=== PATIENT | female | born 1940 | race Caucasian/White ===

== ENCOUNTER 2022-08-01 15:35 | Outpatient (CLI) | payer MEDICARE, SELFPAY ==
[2022-08-01 17:30] LABS: Chloride* 105 mmol/L (96-114); Potassium* 4.5 mmol/L (3.6-5.1); Sodium* 139 mmol/L (135-149)
[2022-08-01 17:33] LABS: Blood Urea Nitrogen* 12 mg/dL (7-30); Calcium* 9.6 mg/dL (8.4-10.6); Carbon Dioxide* 27 mmol/L (20-32); Creatinine* 0.7 mg/dL (0.5-1.5); Estimated Glomerular Filt Rate 86 ml/min; Glucose* 92 mg/dL (60-115)
== END 2022-08-01 15:36 | disposition home or self-care (01) ==
PROVIDERS: PCP Nurse Practitioner Family; Visit Provider Family Medicine
DX: E03.9 Hypothyroidism, unspecified (principal); Z13.1 Encounter for screening for diabetes mellitus
CPT/HCPCS: 80048; 84443

== ENCOUNTER 2023-05-08 10:23 | Outpatient (CLI) | payer MEDICARE, SELFPAY | END 2023-05-08 10:24 | disposition home or self-care (01) | PROVIDERS: PCP Family Medicine; Visit Provider Family Medicine | DX: E03.9 Hypothyroidism, unspecified (principal); Z13.1 Encounter for screening for diabetes mellitus; Z13.21 Encounter for screening for nutritional disorder | CPT/HCPCS: 80048; 82607; 84443 ==

== ENCOUNTER 2024-03-21 09:59 | Outpatient (CLI) | payer MEDICARE, SELFPAY ==
--- OUTSIDE RECORDS SUMMARY | 2024-03-21 10:02 | XMS_ITS | Clinical Summary ---
Author Organization [facility] Address [address] [facility] [place] [address] Care Team Providers Care Tanker Truck Driver Name Role Phone VesnaJuly cifuentes Ann Primary Care Provider Mayank Haines MD Unavailable [phone] Allergies Active Allergy Reactions Criticality Noted Date Comments Amitriptyline Other (See Comments) 01/31/2011 zoned out zoned out Aspirin Other (See Comments) High 01/31/2011 mental, zones out Tryptophan Other (See Comments) High 07/01/2011 And tryptophan family Reaction unknown. ??Tryptophan is a precursor to serotonin. ?? Medications Medication Sig Dispensed Refills Start Date End Date Status Ascorbic Acid (VITAMIN C PO) Active calcium carbonate (OS-RAND 500 MG [place]. CA) 500 MG tablet Take 500 mg by mouth 2 times daily Active Celecoxib (CELEBREX PO) Active cholecalciferol (VITAMIN D/ D--LORETO) 400 UNIT/ML LIQD Take 400 Units by mouth daily Active Jefferson-3 Fatty Acids (OMEGA-3 FISH OIL PO) Act bri GABAPENTIN PO Active garlic 150 MG TABS Take 150 mg by mouth daily Active HYDROcodone-acetamino phen (NORCO) 10-325 MG per tablet Take 1 tablet by mouth every 6 hours as needed Active Levothyroxine Sodium (SYNTHROID PO) Active magnesium citrate solution Take 296 mLs by mouth once Active NIACIN-50 PO Active pramoxine-zinc oxide 1-5 % CREA Place rectally daily as needed Active VITAMIN E COMPLEX PO Acti ve Multiple Vitamins-Minerals (MULTIVITAMIN & MINERAL PO) Active Ranitidine HCl (ZANTAC PO) Active vitamin B complex with vitamin C (VITAMIN B COMPLEX) TABS Take 1 tablet by mouth daily Active Nutritional Supplements (LOGAN COMPLEX PO) Active Red Yeast Rice Extract (RED YEAST RICE PO) Take 1 tablet by mouth daily Active UNABLE TO FIND 2 tablets 2 times daily MEDICATION NAME: [id number] Active UNABLE TO FIND MEDICATION NAME: Sucrafafte Active SUCRALFATE PO Active erythromycin (ROMYCIN) ophthalmic ointmentIndications:P ostoperative eye state Apply small amount to incision sites three times daily and into the eyelid at bedtime for 7 days. 3.5 g 01/07/2018 Active Active Problems No known active problems Family History Medical History Relation Comments Cancer Brother Cancer Daughter Thyroid Disease Daughter Cancer Father Glaucoma Father Cancer Mother Cerebrovascular Disease Mother Hypertension Mother Thyroid Disease Mother Cancer Other Cancer Son Macular Degeneration No family hx of Relation Status Comments Brother Daughter Father Mother Other Son Social History Tobacco Use Types Packs/Day Years Used Date Smoking Tobacco: Never Smokeless Tobacco: Never Alcohol Use Standard Drinks/Week Comments No 0 (1 standard drink = 0.6 oz pur e alcohol) Sex and Gender Information Value Date Recorded Sex Assigned at Not on file Gender Identity Not on file Sexual Orientation Not on file Last Filed Vital Signs Vital Sign Reading Time Taken Comments Blood Pressure 115/77 01/07/2018 11:59 AM CDT Pulse 55 01/07/2018 11:59 AM CDT Temperature 36.1 ??C (96.9 ??F) 01/07/2018 11:59 AM C DT Respiratory Rate 15 01/07/2018 11:59 AM CDT Oxygen Saturation 94% 01/07/2018 11:59 AM CDT Inhaled Oxygen Concentration - - Weight 77.6 kg (171 lb) 12/01/2017 1:56 PM CDT Height 165.1 cm (5' 5) 12/01/2017 1:56 PM CDT Body Mass Index 28.46 12/01/2017 1:56 PM CDT Plan of Treatment Not on file Care Teams Tanker Truck Driver Relationship Specialty Start Date End Date July Bhardwaj PCP - General Family Practice 12/01/17 Mayank Patterson MD [address] [address] Ophthalmology 04/23/18
--- OUTSIDE RECORDS SUMMARY | 2024-03-21 10:02 | XMS_ITS | Continuity of Care Document ---
Author Organization [facility] Address [address] [facility] [address] [place] [address] Phone Care Team Providers Care Neck Band Operator Name Role Phone Candace Mcmillan MD Unavailable Unavailable Allergies, Adverse Reactions, Alerts Substance Reaction Status Criticality [id number] Antimigraine Agents Active No Information aspirin Active No Information Medications Medication Instructions Dosage Effective Dates (start - stop) Status Comments Celebrex 200 mg capsule take 1 capsule by oral route 2 times every day as needed 200 MG - Active gabapentin 300 mg capsule take 2 capsule by oral route every morning then 1 capsule at noon and 2 capsules in the evening 600 MG - Active methocarbamol 750 mg tablet take 2 Tablet by oral route 4 times every day 1500 MG - Active hydrocodone 7.5 mg-acetaminophen 750 mg tablet take 1 tablet by oral route every 4 - 6 hours as needed for pain not to exceed 5 tablets in 24hrs - Active levothyroxine 25 mcg tablet take 1 tablet by oral route every morning 25 MCG - Active niacin 500 mg tablet take 2 Tablet by oral route every evening 1000 MG - Active tramadol 50 mg tablet take 1 - 2 tablet by oral route every day as needed 50 MG - Active ascorbic acid 500 mg tablet take 1 Tablet by Oral route 2 times every day 1 Tablet - Active Calcium 600 600 mg (1,500 mg) tablet take 1 Tablet by Oral route 2 times every day 1 Tablet - Active VITAMIN D3 (unknown strength) take 1 Tablet by Oral route 2 times every day Not Available - Active Fish Oil 1,000 mg capsule take 1 Capsule by Oral route every day - Active garlic 500 mg tablet take 1 tablet by oral route 2 times every day - Active vitamin E 400 unit capsule take 1 Capsule by Oral route 2 times every day 1 Capsule - Active magnesium 250 mg tablet take 1 Tablet by Oral route 2 times every day 1 Tablet - Active potassium 99 mg tablet take 1 tablet by oral route 2 times every day - Active VITAMIN B-12 (unknown strength) take 2 tablet by oral route every day Not Available - Active multivitamin tablet take 1 Tablet by Oral route 2 times every day 1 Tablet - Active ranitidine 150 mg tablet take 1 tablet by oral route every day at bedtime - Active Probiotic & Acidophilus 300 million cell-250 mg capsule take 2 capsule by oral route every day 2 capsule - Active Procedures Procedure Date Office/Outpatient Visit, Est Routine Venipuncture Complete Cbc WAuto Diff Wbc Rbc Sed Rate, Nonautomated CReactive Protein Results Test Name Date and Time Measure Units Reference Range Abnormal Flag Status Commen ts Panel Description: CRP Final CRP 11:50:00 0.04 MG/DL 0.00-0.60 Final Panel Description: CBC Final WBC 11:52:00 3.6 K/uL 3.5-10.8 Final Lymphocyte% 11:52:00 35.9 % 15.1-43.0 Final Mid% 11:52:00 7.0 % 1.0-18.0 Final Gran% 11:52:00 57.1 % 45.0-76.0 Final Lymphocyte # 11:52:00 1.2 K/uL 0.9-5.2 Final Mid # 11:52:00 0.2 K/uL 0.1-2.0 Final Gran # 11:52:00 2.2 K/uL 1.4-9.1 Final RBC 11:52:00 4.27 M/uL 3.80-5.20 Final Hemoglobin 11:52:00 12.9 g/dL 11.5-16.0 Final Hematocrit 11:52:00 38.8 % 36.0-49.0 Final MCV 11:52:00 91 fL 81-100 Final MCH 11:52:00 30 pg 27-35 Final MCHC 11:52:00 33.3 g/dL 31.0-37.5 Final RDW 11:52:00 14.2 % 11.5-21.5 Final MPV 11:52:00 7.0 fL 7.0-10.4 Final Platelet Count 11:52:00 222 K/uL 130-400 Final Panel Description: ESR Final ESR 11:54:00 8 mm/hr 0-25 Final Advance Directives Directive Yes / No Effective Date File Name Resuscitation Not Answered N/A N/A Life Support Not Answered N/A N/A Intubation Not Answered N/A N/A Antibiotics Not Answered N/A N/A IV Fluid Support Not Answered N/A N/A Tube Feed Not Answered N/A N/A Other Directive N/A N/A WARNING:The information contained in this section is historical and is provided for information only and does not constitute a legal document or any assurance that the information is still accurate. Please verify the information with the doyle of the legal document before using it for clinical purposes. Encounters Encounter Description Practice Location Reason(s) For Visit Diagnoses Date Provider Providers Copied on Encounter Office/Outpa tient Visit, Est [facility], [address], [place], [address], [place] tel:[phone] Formerly [facility], [facility] Joint Pain (chief complaint) LumbagoFatig ue / Malaise 2-201 4 Hipolito Maria. [facility] [address], [place], [address], [place]. tel:[phone] Referring Provider: Candace Nash, [facility] [address], [place], [address]. tel:[phone] [facility], [address], [place], [address], [place] tel:[phone] [facility] , No Information Sep-2 5-201 4 Hipolito Maria. [facility] [address] [facility] [address], [place], [address], [place]. tel:[phone] Family History Family Member Type Diagnosis Age At Onset Problem (finding) Family history of hyper tension Problem (finding) Family history of osteo arthritis Problem (finding) cancer Problem (finding) heart disease Problem (finding) Diabetes mellitus Problem (finding) thyroid disease Payers Payer name Insurance type Covered constitution party ID Authoriza tion(s) [employer] CI [id number] Social History Type Description Quantity Date Captured Comments Alcohol Use Details wine 1 glass rarely Caffeine Use Details coffee and soda 1 cup per day Tobacco Use Status No Information Smoking Status Never smoker with 3 children Non-Smoking Tobacco Use Details : No Details Available : No Details Available Sex Female Vital Signs Date / Time: Height Weight BMI Pulse Rate Blood Pressure Temperature Respiratory Rate Body Surface Area Head Circumference Head Circ. Percentile Wt./Jose. Percentile BMI percentile Pulse Ox Inhaled Ox 10:09 AM 66.00 in 180.00 lbs 29.0 5 kg/m eter (2) 158/84 mm[Hg] 97.10 F Chief Complaint And Reason For Visit From encounter dated 04/13/2014 11:00'. Joint Pain (chief complaint) Reason For Referral Reason For Referral No Information History Of Present Illness Encounter Date Complaint History Of Prese nt Illness No Information Functional Status Date Functional Assessmen t No Information Instructions Date Instruction Additional Infor mation No Information Assessments Type Assessment Date No Information Patient Care Teams Name Effective Dates (start - stop) Status Members No Information
--- OUTSIDE RECORDS SUMMARY | 2024-03-21 10:02 | XMS_ITS | Continuity of Care Document ---
Author Organization [facility] Address [address] [place] [address] Phone Care Team Providers Care Cloud Automation Tester Name Role Phone Juanita MORAN, Amidanilo Unavailable Unavailable Allergies, Adverse Reactions, Alerts Substance Reaction Status Criticality CLINDAMYCIN HCL Hives and rash Active No Informa tion amitriptyline Confusion Active No Information aspirin Confusion Active No Information Medications Medication Instructions Dosage Effective Dates (start - stop) Status Comments ACETAMINOPHEN (unknown strength) Not Available - Active CALCIUM (unknown strength) Not Available - Active HYDROcodone-acetaminoph en (unknown strength) Not Available - Active PANTOPRAZOLE SODIUM (unknown strength) Not Available - Active TAMSULOSIN HCL (unknown strength) Not Available - Active MAGNESIUM (unknown strength) Not Available - Active NIACIN (unknown strength) Not Available - Active GABAPENTIN (unknown strength) Not Available - Active MULTIVITAMINS (unknown strength) Not Available - Active CELEBREX (unknown strength) Not Available - Active ROBAXIN (unknown strength) Not Available - Active TIROSINT (unknown strength) Not Available - Active POTASSIUM (unknown strength) Not Available - Active FISH OIL (unknown strength) Not Available - Active Procedures Procedure Date Postop Followup Visit X-Ray Exam Lower Spine 2-3 Views 2018 Postop Followup Visit X-Ray Exam Lower Spine 2-3 Views 2018 Pa Arthdsis Post/Posterolatrl/Postinterb smita Lumbar Pa Arthdsis Post/Posterlatrl/Postintrbdy adl Spc/Seg Pa Assist Spine Fusion, Each Add'Lverteb ra Remove Lumbar Spine Lamina, 1 Seg Pa Assist Insert Spine Seg Fix, Post, 3- 6 Seg PA Assist Insert interbody cage w/fusion Arthdsis Post/Posterolatrl/Postinterbody Lumbar Arthdsis Post/Posterlatrl/Postintrbdyadl Spc/Seg Spine Fusion, Each Add'Lvertebra 2017 Remove Lumbar Spine Lamina, 1 Seg Insert Spine Seg Fix, Post, 3-6 Seg Insert interbody cage w/fusion 18 Autograft, Spine Surgery, Local 018 Allograft, Spine Surg, Morselized Office/Outpatient Visit,New, Mod 2017 Office/Outpatient Visit,Est, Mod 2013 Office/Outpatient Visit,Est, Mod 2011 Office/outpatient visit,est, mod 2010 Office/outpatient visit,new, mod 2010 X-ray exam lower spine 2-3 views 2010 Advance Directives Directive Yes / No Effective Date File Name No Information Encounters Encounter Description Practice Location Reason(s) For Visit Diagnoses Date Provider Providers Copied on Encounter [facility], [address] [facility], [place], [place], [id number], [place] tel:[phone] [facility] No Information 1 Juanita Farah [facility], [address] [place] [address] [address], [place], [place], [id number], [place]. tel:[phone] [facility], [address] [place] [address], [id number], [place] tel:[phone] [facility] Encounter for other specified surgical aftercareEnco unter for other specified surgical aftercare 9 Claudia Ayala. [address] [place] [address] [address], [place], [place], [id number], [place]. tel:[phone] Referring Provider: Keon Thacker, [facility] [address] [place] [address], [place], [address]. tel:[phone] [facility], [address] [place] [address], [id number], tel:[phone] [facility] Encounter for other specified surgical aftercare Mehbod Amir. [facility], [address] [place] [address], [id number], . tel:[phone] Referring Provider: Keon Thacker [address], [address]. tel:[phone] [facility], [address] [place] [address], [id number], [place] tel:[phone] [facility] No Information Doreenmegan Ayala. [address] [place] [address], [id number], . tel:[phone] Referring Provider: Keon Thacker [address], [address]. tel:[phone] [facility], [address] [place] [address], [id number], [place] tel:[phone] [facility] No Information Mehbod Amir. [facility], [address] [place] [address], [id number], . tel:[phone] Referring Provider: Keon Thacker [address], [address]. tel:[phone] Office/Outpa tient Visit,New, [facility], [address] [place] [address], [id number], tel:[phone] [facility] [place] Spinal stenosis, lumbar region with neurogenic claudication Mehbod Amir. [facility], [address] [place] [address], [id number], . tel:[phone] Referring Provider: Keon Thacker [address], [address]. tel:[phone] Office/Outpa tient Visit,Est, Mod Z [facility], [address], [place], [address], [place] tel:[phone] [facility] [place] Back Pain (chief complaint) No Information 0-201 4 Mehbod Amir. [facility], [address], [place], [place], [id number], [place]. tel:[phone] Referring Provider: Ruthie Grant, [facility] [address], [place], [address]. tel:[phone] Office/Outpa tient Visit,Est, Mod Z [facility], [address], [place], [facility], [place] tel:[phone] [facility] No Information 0-201 2 Mehbod Amir. [facility], [address], [place], [place], [id number], [place]. tel:[phone] Referring Provider: Ruthie Grant, [facility] [address], [place], [address]. tel:[phone] Office/outpa tient visit,est, mod Z [facility], [address], [place], [facility], [place] tel:[phone] [facility] [place] No Information 3-201 1 Mehbod Amir. [facility], [address], [place], [place], [id number], [place]. tel:[phone] Referring Provider: Ruthie Grant, [facility] [address], [place], [address]. tel:[phone] Office/outpa tient visit,new, mod Z [facility], [address], [place], [place], [facility], [place] tel:[phone] [facility] [place] back pain (chief complaint) leg pain (chief complaint) No Information 1 Juanita Hendricks. [facility], [address], [place], [place], [id number], . tel:[phone] Referring Provider: Ruthie Grant, [facility] [address], [place], [address]. tel:[phone] Z [facility], [address], [place], [address], [place] tel:[phone] [facility] - [facility] MigraineSLEEP DISTURBANCE NOSHypothyroi dismArthropat hy/ArthritisO steoporosisSC OLIOSIS NEC 1 Pankaj Adkins. [facility], [address] [place] [address] [address], [place], [place], [id number], . tel:[phone] Family History Family Member Type Diagnosis Age At Onset Father Problem (finding) Diabetes mellitus Mother Problem (finding) Heart disease Father Problem (finding) Arthritis Father Problem (finding) Heart disease Problem (finding) Family history of Cance r Mother Problem (finding) osteoporosis Problem (finding) Family history of scoliosis deformity of spine Mother Problem (finding) hypertension Mother Problem (finding) Arthritis Mother Problem (finding) Low back problems Payers Payer name Insurance type Covered constitution party ID Ted tavera(s) [facility] [id number] Medicare [facility] [id number] Social History Type Description Quantity Date Captured Comments Sex Female Smoking Status No Information Chief Complaint And Reason For Visit No Information Reason For Referral Reason For Referral No Information History Of Present Illness Encounter Date Complaint History Of Prese nt Illness Back Pain Functional Status Date Functional Assessmen t No Information Instructions Date Instruction Additional Infor mation No Information Assessments Type Assessment Date No Information Patient Care Teams Name Effective Dates (start - stop) Status Members No Information
--- OUTSIDE RECORDS SUMMARY | 2024-03-21 10:02 | XMS_ITS | Clinical Summary ---
Author Organization [employer] [facility] Address [place], [place] [address] Care Team Providers Care Occup Ther Name Role Phone July Bhardwaj MD Primary Care Provider Christopher emery Allergies Active Allergy Reactions Criticality Noted Date Comments Amitriptyline Intolerance-Can't Take 01/31/2011 zoned out Aspirin Other - Describe In Comment Field 01/31/2011 mental, zones out Tryptophan Other - Describe In Comment Field 06/22/2018 Reaction unknown. Tryptophan is a precursor to serotonin. Medications Medication Sig Dispensed Refills Start Date End Date Status calcium 600 mg capsule Take 600 mg by mouth every morning. 0 01/31/2011 Active multivitamin (MVI) tablet Take 1 tablet by mouth at bedtime. 0 01/31/2011 Active celecoxib (CELEBREX) 200 mg capsule Take 200 mg by mouth 2 times daily with meals. Active Cholecalciferol, Vitamin D3, 5,000 unit Tab Take 5,000 Units by mouth at bedtime. Active omega-3 fatty acids-vitamin E (FISH OIL) 1,000 mg Cap Take 1 capsule by mouth once daily. Active ASCORBATE CALCIUM (VITAMIN C ORAL) Take 500 mg by mouth at bedtime. Active PROCHLORPERAZINE EDISYLATE (COMPAZINE ORAL) Take by mouth. Per pt states she takes it after surgery; patient states she throws up after anesthetic. Active gabapentin (NEURONTIN) 300 mg capsule Take 300-900 mg by mouth 3 times daily. Take 2 tablet in the am and 1 tablet at noon and 3 tablets at bedtime Active magnesium oxide 250 mg tablet Take 250 mg by mouth at bedtime. Active levothyroxine (SYNTHROID) 50 mcg tablet Take 50 mcg by mouth before breakfast. 07/28/2016 Active pantoprazole (PROTONIX) 40 mg delayed-release tablet Take 40 mg by mouth once daily. 07/28/2016 Active VOLTAREN gel Apply 1 Applicatorful topically to affected area(s) 2 times daily if needed. 07/10/2017 Active diphenhydrAMINE-ac etaminophen 25-500 mg (ACETAMINOPHEN PM) 25-500 mg tablet Take 2 tablets by mouth at bedtime if needed (as needed for sleep ). Max acetaminophen dose: 4000mg in 24 hrs. Active sucralfate (CARAFATE) 1 gram tablet Take 1 tablet by mouth 2 times daily before meals. Active pyridoxine HCl, vitamin B6, (VITAMIN B-6 ORAL) Take by mouth once daily. Active oxyCODONE (ROXICODONE) 5 mg immediate release tabletIndications: Acute pain Take 1-2 tablets by mouth every 4 hours if needed for Pain (For moderate pain) Earliest Fill Date: 06/28/18 40 tablet 06/28/2018 Active sennosides-docusat e, 8.6-50 mg, (SENOKOT S) 8.6-50 mg tabletIndications: Acute pain Take 1-4 tablets by mouth 2 times daily. 100 tablet 06/28/2018 Active prochlorperazine (COMPAZINE) 10 mg tablet Take 10 mg by mouth each time if needed for Nausea/Vomiting or Other (Specify) (pt states she takes after surgery as she throws up after anesthetic ). 07/16/2018 Active carboxymethylcellu lose-glycern (OPTIVE) 0.5-0.9 % ophthalmic solution Place 1 Drop into both eyes each time if needed (dry eyes). 07/16/2018 Active Lactobacillus Acidophilus cap Take 1 capsule by mouth once daily if needed (digestion aid). Active methocarbamol (ROBAXIN) 750 mg tablet Take 750 mg by mouth at bedtime if needed (back spasms). 07/16/2018 Active acetaminophen (TYLENOL) 325 mg tablet Take 650 mg by mouth every 6 hours if needed (pain). Max acetaminophen dose: 4000 mg in 24 hours 07/16/2018 Active diclofenac 1 % topical (VOLTAREN) gel Apply 1 Applicator topically to affected area(s) 2 times daily if needed (joint pain ). 07/16/2018 Active tamsulosin (FLOMAX) 0.4 mg capsuleIndications :Urinary hesitancy TAKE 1 CAPSULE BY MOUTH EVERY DAY 90 capsule 3 01/02/2019 Active Active Problems Problem Noted Date Diagnosed Date Spinal stenosis of lumbar re gion with neurogenic claudication 06/25/2018 Hypothyroidism 06/25/2018 Mixed incontinence 06/16/2016 Left carpal tunnel syndrome 12/07/2012 Right carpal tunnel syndrome 10/26/2012 Left shoulder Reverse TSA 01/28/2012 09/02/2012 Left shoulder Reverse TSA 01/28/2012 02/10/2012 ACP (advance care planning) 01/29/2012 Overview (01/29/2012): Patient has identified Health Care Agent(s): Yes Add Health Care Agents: Yes Health Care Agent(s): Primary Health Care Agent: Laura Rodrigues Relationship:granddtr. Phone: H)[phone] Secondary Health Care Agent:Cecelia Steele Relationship:dtr Phone: H)[phone] C)[phone] Conservator: Relationship: Phone: Guardian: Relationship: Phone: Patient has Advance Care Plan Documents (Health Care Directive, POLST): Yes Advance Care Plan Documents: Health Care Directive Patient has identified Specific Treatment Preferences: Yes Specific Treatment Preferences: Per Chart Full code , please see HCD for specific treatment preferences s/p right shoulder reverse total shoulder DOS 10/02/2011 Osteoarthritis of glenohumeral joint, left 10/01 Osteoarthritis of glenohumeral joint, right 08/0 10/2010 Complete rupture of rotator cuff 01/31/2011 Resolved Problems Problem Noted Date Diagnosed Date Resolved Date Carpal tunnel syndrome, left 12/02/2012 12/07/2012 Immunizations Name Administration Dates Next Due Pneumococcal Poly,23-Valent (Pneumovax) 12/13/19 05 Family History Medical History Relation Name Comments Cancer-pancreatic Brother Cancer-breast Daughter Cancer Father stomach cancer Heart Disease Father Heart Disease Maternal Uncle 1 Heart Disease Maternal Uncle 2 Cancer Mother uterine cancer Heart Disease Mother Arthritis Other multiple relati ves Cancer Son 2 renal cancer Relation Name Status Comments Brother Daughter Father Maternal Uncle 1 Maternal Uncle 2 Mother Other Son 1 x2, alcoholic-r elated health concerns Son 2 Social History Tobacco Use Types Packs/Day Years Used Date Smoking Tobacco: Never Smokeless Tobacco: Never Tobacco Cessation:Counseling Given: Yes Comments:never smoke Alcohol Use Standard Drinks/Week Comments No 0 (1 standard drink = 0.6 oz pur e alcohol) Sex and Gender Information Value Date Recorded Sex Assigned at Not on file Gender Identity Not on file Sexual Orientation Not on file Obstetrics History Last Filed Vital Signs Vital Sign Reading Time Taken Comments Blood Pressure 108/64 08/03/2018 12:[address]ER Pulse 62 08/03/2018 12:[address] WORKER Temperature 36.9 ??C (98.5 ??F) 08/03/2018 12:[address] Respiratory Rate 18 08/03/2018 12:[address]ER Oxygen Saturation 96% 08/03/2018 12:[address] WORKER Inhaled Oxygen Concentration - - Weight 78.5 kg (173 lb) 06/25/2018 12:[address] WORKER Height 167.6 cm (5' 6) 06/25/2018 12:[address] WORKER Body Mass Index 27.92 06/25/2018 12:[address] WORKER Plan of Treatment Health Maintenance Due Date Last Done Comments Tdap 1950 Depression screening for age 12+ 1951 BMI (ht and wt on same day) for age 18+ 1957 Tetanus booster 1959 Zoster (shingles) series for age 50+ (1 of 2) 01/24/19 89 RSV vaccine for adults or pr egnancy (1 - 1-dose 60+ series) 1999 DEXA/DXA scan for age 65+ 01/25/2004 Pneumococcal series for age 65+ (2 of 2 - PCV) 006 12/12/2004 COVID-19 vaccine series ( - 2022-24 season) Influenza for age 65+ 03/13/2024 Medical Devices Implanted Type Area Final Application Reviewer Device Identifier Shelf Expiration Date Model / Serial / Lot Screw Rev [id number] Self Tap Canclls Lock - [id number] Implanted:Qty: 2 on 04/02/2011 at [facility] Right: Shoulder [employer] CZN928# / / Screw Rev 4.5azd03cc Comp Self Tap Cnclls - [id number] Implanted:Qty: 1 on 04/02/2011 at [facility] Right: Shoulder [employer] URZ196# / / Baseplate [id number] Std Post - [id number] Implanted:Qty: 1 on 04/02/2011 at [facility] Right: Shoulder [employer] FBV471# / / [id number] Restrictor Cement - [id number] Implanted:Qty: 1 on 04/02/2011 at [facility] Right: Shoulder MISCELLANEOUS MFR'S MP8973# / / [id number] Cmnt 1/2 Dosehowmedica - [id number] Implanted:Qty: 1 on 04/02/2011 at [facility] Right: Shoulder [employer] 6188-- 0# / / [id number] Cmnt Bone Surg Simplex - [id number] Implanted:Qty: 1 on 04/02/2011 at [facility] Right: Shoulder [employer] 6191-- 0# / / [id number] Stem Rev Liam [id number] - [id number] Implanted:Qty: 1 on 04/02/2011 at [facility] Right: Shoulder [employer] VBG378# / / Metaphysis Rev 36mm - [id number] Implanted:Qty: 1 on 04/02/2011 at [facility] Right: Shoulder [employer] OJG278# / / Insert Rev Lat [id number] - [id number] Implanted:Qty: 1 on 04/02/2011 at [facility] Right: Shoulder [employer] NHJ032# / / Screw Rev [id number] Comp Self Tap Cnclls - [id number] Implanted:Qty: 1 on 04/02/2011 at [facility] Right: Shoulder [employer] HGP381# / / Cmnt Bone Surg Simplex - [id number] Implanted:Qty: 1 on 01/28/2012 at [facility] Left: Shoulder [employer] 6191-1-01 0# / / [id number] Cmnt 1/2 Dosehowmedica - [id number] Implanted:Qty: 1 on 01/28/2012 at [facility] Left: Shoulder [employer] 6188-1-01 0# / / [id number] Baseplate [id number] Std Post - [id number] Implanted:Qty: 1 on 01/28/2012 at [facility] Left: Shoulder [employer] UHS194# / / [id number] Screw Rev 4.7nej02oa Self Tap Canclls Lock - [id number] Implanted:Qty: 2 on 01/28/2012 at [facility] Left: Shoulder [employer] DMW131# / / Screw 32mm - [id number] Implanted:Qty: 1 on 01/28/2012 at [facility] Left: Shoulder MISCELLANEOUS MFR'S KQB171# / / Insert Tib 36x9mm Rev Lat - [id number] Implanted:Qty: 1 on 01/28/2012 at [facility] Left: Shoulder [employer] ISA711# / / [id number] Stem Rev Liam 1osj099vb - [id number] Implanted:Qty: 1 on 01/28/2012 at [facility] Left: Shoulder [employer] MZM840# / / [id number] Metaphysis Rev 36mm - [id number] Implanted:Qty: 1 on 01/28/2012 at [facility] Left: Shoulder [employer] RFK056# / / [id number] Tilted [id number]' Implanted:Qty: 1 on 01/28/2012 at [facility] Explanted:at [facility] (Quantity not on file) Left: Shoulder DNP344 / / [id number] Description:TILTED EGCQIZ21' Lens Iol 22.5 Wf Wkcithjtl36ea-23. 5 - [id number] Implanted:Qty: 1 on 11/22/2013 at [facility] Right: Eye [employer] 07/13/2018 VL82IC-88 .5# / [id number] / Lens Iol Toric Iq At5 25.0 - [id number] Implanted:Qty: 1 on 12/08/2013 by Jamie Woodson MD at [facility] Left: Eye [employer] SN6AT5# / [id number] / [id number] 1-4mm 60cc Medtronic Fine Canclls Freeze Dried Implanted:Qty: 1 on 06/25/2018 by Ruthie Grant MD at [facility] Explanted:at [facility] (Quantity not on file) N/A: Spine Med[employer]onic Spine/Ortho 10/18/2022 [id number]# / [id number] / Screw Lmbr Post 6.5x45mm Vitality Va - [id number] Implanted:Qty: 6 on 06/25/2018 by Ruthie Grant MD at [facility] N/A: Spine [employer] Spine 075# / / Screw Lmbr Post 7.5x40mm Vitality Va - [id number] Implanted:Qty: 2 on 06/25/2018 by Ruthie Grant MD at [facility] N/A: Spine [employer] Spine 116# / / Alejandro Lmbr 90x5.5mm Vitality Cvd Titnm - [id number] Implanted:Qty: 2 on 06/25/2018 by Ruthie Grant MD at [facility] N/A: Spine [employer] Spine 015# / / Spacer Lmbr [id number] Zyston Convex Stra Plif - [id number] Implanted:Qty: 1 on 06/25/2018 by Ruthie Grant MD at [facility] N/A: Spine [employer] 10/20/2026432899 # / / [id number] Spacer Lmbr [id number] Zyston Convex Stra Plif - [id number] Implanted:Qty: 1 on 06/25/2018 by Ruthie Grant MD at [facility] N/A: Spine [employer] 04/29/2027950589 # / / [id number] Matrix 6cc Frank Dbf Putty Dbm Implanted:Qty: 1 on 06/25/2018 by Ruthie Grant MD at [facility] Explanted:at [facility] (Quantity not on file) N/A: Spine [employer] Spine/Ortho 02/22/2020 R68098# / [id number] / Set Screw Lmbr 5.5-6mm Vitality Torque - [id number] Implanted:Qty: 8 on 06/25/2018 by Ruthie Grant MD at [facility] N/A: Spine [employer] Spine 001# / / Explanted Type Area Final Application Reviewer Device Identifier Shelf Expiration Date Model / Serial / Lot Restrictor Cement - [id number] Explanted:Qty: 1 on 01/28/2012 at [facility] Left: Shoulder MISCELLANEOUS MFR'S OLM476# / / [id number] Advance Directives Documents on File Type Date Recorded Patient Spa Attendant Expl anation Healthcare Directive 04/07/2011 * Full Code (Latest Code Status on File) Date Activated Date Inactivated Comments 06/25/2018 7:12 PM 06/28/2018 3:59 PM * Full Code Date Activated Date Inactivated Comments 12/08/2013 6:15 AM 12/08/2013 10:38 AM * Full Code Date Activated Date Inactivated Comments 11/22/2013 9:48 AM 11/22/2013 4:24 PM * Full Code Date Activated Date Inactivated Comments 12/09/2012 8:59 AM 12/09/2012 11:41 AM * Full Code Date Activated Date Inactivated Comments 12/09/2012 6:36 AM 12/09/2012 8:59 AM Care Teams Occup Ther Relationship Specialty Start Date End Date July Bhardwaj MD PCP - General Family Practice 06/19/18
--- OUTSIDE RECORDS SUMMARY | 2024-03-21 10:02 | XMS_ITS | Referral Summary ---
Author Organization [place] Address [address] [place] [address] Care Team Providers Care Plate Embosser Name Role Phone VesnaJuly cifuentes Ann Primary Care Provider Mayank Haines MD Unavailable [phone] Allergies Active Allergy Reactions Criticality Noted Date [...] PO) Active calcium carbonate (OS-RAND 500 MG [employer] [place]) 500 MG tablet Take 500 mg by mouth 2 times daily Active Celecoxib (CELEBREX PO) Active cholecalciferol (VITAMIN D/ D--LORETO) 400 UNIT/ML LIQD Take 400 Units by mouth daily Active Windfall-3 Fatty Acids (OMEGA-3 FISH OIL PO) Act [...] 2 tablets 2 times daily MEDICATION NAME: [id number] Active UNABLE TO FIND MEDICATION NAME: Sucrafafte Active SUCRALFATE PO Active erythromycin (ROMYCIN) ophthalmic ointmentIndications:P ostoperative eye state Apply small amount to incision sites three times daily and into the eyelid at bedtime for 7 days. 3.5 g 01/07/2018 Active Active Problems No known active problems Social History Tobacco Use Types Packs/Day Years [...] of Treatment Not on file Care Teams Plate Embosser Relationship Specialty Start Date End Date July Bhardwaj PCP - General Family Practice 12/01/17 Mayank Patterson MD [address] [id number] Ophthalmology 04/23/18
== END 2024-03-21 10:00 | disposition home or self-care (01) ==
PROVIDERS: PCP Family Medicine; Visit Provider Family Medicine
DX: E03.9 Hypothyroidism, unspecified (principal); Z13.1 Encounter for screening for diabetes mellitus
CPT/HCPCS: 80048; 84443